=== PATIENT | male | born 1955 | race Caucasian/White ===

== ENCOUNTER 2020-03-04 09:52 | Emergency (ER) | payer BC ==
--- NOTE | 2020-03-04 10:51 | CR ---
PROCEDURE INFORMATION: Exam: XR Right Ankle Exam date and time: 03/04/2020 10:31 AM Age: 65 years old Clinical indication: Other: Fall with right ankle pain TECHNIQUE: Imaging protocol: XR Right ankle. Views: 3 or more views. COMPARISON: No relevant prior studies available. FINDINGS: Bones/joints: Acute mildly comminuted fracture of the distal right fibular shaft with up to 4.5 mm anterior distal fragment displacement and up to 3 mm lateral displacement. Acute transversely oriented fracture through the right medial malleolus with up to 5 mm lateral displacement. Acute longitudinally oriented fracture through the posterior tibia with intra-articular extension and up to 3.5 mm posterior displacement. Multiple heel spurs. Talonavicular joint space narrowing and degenerative spurring. Intact talus and calcaneus. Soft tissues: Diffuse soft tissue swelling. IMPRESSION: 1. Multiple fractures without dislocation. 2. Acute fractures include distal right fibular shaft with up to 4.5 mm displacement, acute transverse medial malleolus fracture with up to 5 mm lateral displacement and posterior tibia malleolus intra-articular fracture with up to 3.5 mm posterior displacement.
--- NOTE | 2020-03-04 11:37 | EDM.PDOC ---
ED HPI GENERAL MEDICAL PROBLEM - General Stated Complaint: BROKEN RIGHT ANKLE Time Seen by Provider: 03/04/20 11:25 Source of Information: Reports: Patient History Limitations: Reports: No Limitations - History of Present Illness INITIAL COMMENTS - FREE TEXT/NARRATIVE: This 65 yo male patient reports to the ED with pain to his right ankle due to a ground level fall. The patient reports he slipped on the ice today landing on his ankle behind his body. The patient has not been able to put any weight on the ankle since time of injury. Onset: Today Duration: Minutes: Location: Reports: Lower Extremity, Right Quality: Reports: Ache, Stabbing Severity: Moderate Improves with: Reports: None, Movement Context: Reports: Other Associated Symptoms: Reports: No Other Symptoms Right Ankle Pain Score (Numeric/FACES): 8 - Related Data Allergies Allergy/AdvReac Type Severity Reaction Status Date / Time codeine Allergy Mild Itching Verified 03/04/20 10:25 Home Meds: Home Meds Pregabalin 200 mg PO ASDIRECTED 03/04/20 [History] Pregabalin 300 mg PO ASDIRECTED 03/04/20 [History] atorvaSTATin Calcium [Atorvastatin Calcium] 80 mg PO DAILY 03/04/20 [History] metFORMIN HCl [Metformin HCl] 1,000 mg PO BID 03/04/20 [History] Past Medical History Cardiovascular History: Reports: Bypass, CAD Genitourinary History: Reports: Diabetic Nephropathy Endocrine/Metabolic History: Reports: Diabetes, Type II Social & Family History - Family History Family Medical History: No Pertinent Family History - Tobacco Use Tobacco Use Status *Q: Never Tobacco User - Caffeine Use Caffeine Use: Reports: Tea - Recreational Drug Use Recreational Drug Use: No Review of Systems - Review of Systems Review Of Systems: Comprehensive ROS is negative, except as noted in HPI. ED EXAM, GENERAL - Physical Exam Exam: See Below Exam Limited By: No Limitations General Appearance: Alert, WD/WN, Moderate Distress Eye Exam: Bilateral Eye: EOMI, Normal Inspection, PERRL Ears: Normal External Exam, Normal Canal, Hearing Grossly Normal, Normal TMs Nose: Normal Inspection, Normal Mucosa, No Blood Throat/Mouth: Normal Inspection, Normal Lips, Normal Teeth, Normal Gums, Normal Oropharynx, Normal Voice, No Airway Compromise Head: Atraumatic, Normocephalic Neck: Normal Inspection, Supple, Non-Tender, Full Range of Motion Respiratory/Chest: No Respiratory Distress, Lungs Clear, Normal Breath Sounds, No Accessory Muscle Use, Chest Non-Tender Cardiovascular: Normal Peripheral Pulses, Regular Rate, Rhythm, No Edema, No Gallop, No JVD, No Murmur, No Rub GI/Abdominal: Normal Bowel Sounds, Soft, Non-Tender, No Organomegaly, No Distention, No Abnormal Bruit, No Mass (Male) Exam: Deferred Rectal (Males) Exam: Deferred Back Exam: Normal Inspection, Full Range of Motion, NT Extremities: Leg Pain (right ankle pain with swelling (medial and lateral tenderness)) Neurological: Alert, Oriented, CN II-XII Intact, Normal Cognition, Normal Gait, Normal Reflexes, No Motor/Sensory Deficits Psychiatric: Normal Affect, Normal Mood Skin Exam: Warm, Dry, Intact, Normal Color, No Rash Lymphatic: No Adenopathy Course - Vital Signs Last Recorded V/S: Last Vital Signs Temp 36.4 C 03/04/20 10:21 Pulse 83 03/04/20 10:21 Resp 14 03/04/20 10:21 BP 133/89 03/04/20 10:21 Pulse Ox 94 L 03/04/20 10:21 Departure - Departure Time of Disposition: 11:49 Disposition: Home, Self-Care 01 Condition: Fair Clinical Impression: Fracture of right tibia and fibula Qualifiers: Encounter type: initial encounter Fracture type: closed Qualified Code(s): S82.201A - Unspecified fracture of shaft of right tibia, initial encounter for closed fracture; S82.401A - Unspecified fracture of shaft of right fibula, initial encounter for closed fracture - Discharge Information *PRESCRIPTION DRUG MONITORING PROGRAM REVIEWED*: Not Applicable *COPY OF PRESCRIPTION DRUG MONITORING REPORT IN PATIENT KAYLA: Not Applicable Instructions: Tibial and Fibular Fractures, Tibial Fracture, Adult, [id number] Forms: ED Department Discharge Care Plan Goals: The patient was advised of the examination and x-ray results during the visit. The patient was placed in a walking boot and given a set of crutches while in the ED. The patient was encouraged to rest, ice and elevate his right lower extremity. The patient was given an oral dose of [place] (10/325) while in the ED. The patient was discharged with a script for [place] (5/325) #10 to take 1 by mouth every 6 hours as needed for pain. If the patient has any additional symptoms or concerns, the patient should either return to the emergency department or visit his primary care facility. Sepsis Event Note (ED) - Evaluation Sepsis Screening Result: No Definite Risk - Focused Exam Vital Signs: Vital Signs Temp Pulse Resp BP Pulse Ox 03/04/20 10:21 36.4 C 83 14 133/89 94 L
[2020-03-04] MEDS: Acetaminophen/HYDROcodone 325-10 MG Tab PO ONE (11:42)
== END 2020-03-04 12:04 | disposition home or self-care (01) ==
LOC: DL.ED 09:52
DX: S82.401A Unspecified fracture of shaft of right fibula, initial encounter for closed fracture (principal); S82.51XA Displaced fracture of medial malleolus of right tibia, initial encounter for closed fracture; E11.21 Type 2 diabetes mellitus with diabetic nephropathy; I25.10 Atherosclerotic heart disease of native coronary artery without angina pectoris; Z95.1 Presence of aortocoronary bypass graft; Z79.84 Long term (current) use of oral hypoglycemic drugs; Z79.899 Other long term (current) drug therapy; Z88.5 Allergy status to narcotic agent; W00.0XXA Fall on same level due to ice and snow, initial encounter
CPT/HCPCS: 73610; 99283; 99284; A9270

== ENCOUNTER 2021-10-13 05:50 | Day surgery (SDC) | payer MEDICARE, BC ==
[~2021-10-13 05:50] MED LIST: Sodium Chloride 0.9% 10 ML Syringe FLUSH SCH
[2021-10-13] MEDS ORDERED: fentaNYL 100 MCG/2 ML SDV IV ONE ×3 (05:51→07:20)
[2021-10-13] MEDS ORDERED: Midazolam 1 MG/ML 2 ML SDV IV ONE ×6 (05:51→07:43)
[2021-10-13] MEDS ORDERED: Sodium Chloride 0.9% 10 ML Syringe FLUSH PRN (06:00)
[2021-10-13] MEDS ORDERED: Dextrose 5%-0.45% NaCl 1,000 ML IV SCH (06:00)
[2021-10-13] MEDS ORDERED: Midazolam 1 MG/ML 2 ML SDV ONE (06:17)
[2021-10-13] MEDS ORDERED: fentaNYL 100 MCG/2 ML SDV ONE (06:17)
== END 2021-10-13 10:05 | disposition home or self-care (01) ==
LOC: DL.ENDO 05:50
PROVIDERS: ATTEND Internal Medicine Gastroenterology
DX: Z12.11 Encounter for screening for malignant neoplasm of colon (principal); K63.5 Polyp of colon; I25.10 Atherosclerotic heart disease of native coronary artery without angina pectoris; F32.A Depression, unspecified; E11.9 Type 2 diabetes mellitus without complications; E78.5 Hyperlipidemia, unspecified; G37.3 Acute transverse myelitis in demyelinating disease of central nervous system; E66.09 Other obesity due to excess calories; Z98.890 Other specified postprocedural states; Z86.010 Personal history of colon polyps; Z88.5 Allergy status to narcotic agent; Z68.30 Body mass index [BMI] 30.0-30.9, adult
CPT/HCPCS: 45385; J2250; J3010; J7042